=== PATIENT | male | born 1980 | race Two or more races ===

== ENCOUNTER 2016-10-19 18:56 | Emergency (ER) | payer SELFPAY ==
[2016-10-19] MEDS ORDERED: TRAMADOL HYDROC50 MG PO (21:42)
[2016-10-19 22:03] VITALS: BP 128/90
== END 2016-10-19 22:03 | disposition home or self-care (01) | DRG 605 ==
LOC: ED 18:56
DX: S00.03XA Contusion of scalp, initial encounter (principal); F17.290 Nicotine dependence, other tobacco product, uncomplicated; S00.83XA Contusion of other part of head, initial encounter; Y04.0XXA Assault by unarmed brawl or fight, initial encounter; S01.511A Laceration without foreign body of lip, initial encounter; J32.9 Chronic sinusitis, unspecified